=== PATIENT | female | born 1955 | race Caucasian/White ===

== ENCOUNTER 2017-01-07 13:08 | Outpatient (CLI) | payer OTHER ==
--- NOTE | 2017-01-07 13:47 | DIAGNOSTIC IMAGING REPORT ---
PROCEDURE: CT ABDOMEN/PELVIS W/O CONTRAST INDICATION: Left lower quadrant pain and hematuria x 3 days. TECHNIQUE: Noncontrast axial images were obtained of the entire abdomen and pelvis with sagittal and coronal reformations. COMPARISON: None. FINDINGS: ABDOMEN: There are three nonobstructing calculi in each kidney (1 - 2.5 mm). No hydronephrosis. Normal ureters. Liver, gallbladder, pancreas, spleen and adrenal glands are normal. Normal abdominal aorta. Retroaortic left renal vein. Stool throughout the large bowel. Lung base are clear. Heart size is normal. PELVIS: Normal appendix. Uterus, bladder and adnexa are unremarkable. No free fluid or inflammatory changes. Mild L5-S1 disc space narrowing. IMPRESSION: 1. Nonobstructing bilateral renal calculi 2. Obstipation 3. Results discussed with SARAH Diaz All CT scans at this facility use dose modulation, iterative reconstruction, and/or weight-based dosing when appropriate to reduce radiation dose to as low as reasonably achievable.
== END 2017-01-07 23:00 ==
LOC: CT SRH 13:08
DX: R10.32 Left lower quadrant pain (principal); N20.0 Calculus of kidney; K59.00 Constipation, unspecified